=== PATIENT | male | born 1985 | race Caucasian/White ===

== ENCOUNTER 2020-10-08 10:05 | Emergency (ER) | payer SELFPAY ==
--- OUTSIDE RECORDS SUMMARY | 2020-10-08 10:08 | XMS REPORT | Continuity of Care Document ---
:1985 Author Organization [facility] t Address [address] [place] [address] Care Team Providers Name Role Phone FLORES Attending Clinician Unavailable Payers Payer Name Policy Type Policy Number Effective Date Expiration Date S ource Problems This patient has no known problems. Allergies, Adverse Reactions, Alerts Allergy Allergy Status Severity Reaction(s) Onset Inactive Treating Comm ents Source Name Type Date Date Clinician No Known DA Active U [facility] Allergie 12-13 Clear s 00:00: [place] 00 [facility] Medications This patient has no known medications. Procedures This patient has no known procedures. Encounters Start End Encounter Admission Attending Care Care Encounter Source Date/Time Date/Time Type Type Clinicians Facility Department ID 2020-06-07 2020-06-[address] [facility] [id number] Access 13:39:00 13:39:00 [facility] 2020-05-31 2020-05-[address] [facility] [id number] Access 09:00:00 09:00:00 [facility] Results Test Description Test Time Test Comments Results Result [facility] e Comments - XR KNEE 1 OR 2 V 2019-12-14 FAX: Y RT 05:12:00 Valentin Reid MD [phone] [place]: St: PRE Name: [facility] [place] : 1985 Age/S: 34/M [address] [place] [address] Unit #: [id number] Loc: [address] [place] [address] Phys: Valentin Reid MD Acct: [id number] Dis Date: Status: PRE ER PHONE #: [phone] Exam Date: 12/14/2019446 FAX #: [phone] Reason: PAIN WITH TRAUMA EXAMS: CPT CODE: [id number] XR KNEE 1 OR 2 V RT [address]89 EXAM: CR, XR ANKLE 3+ V LT: 12/14/2019, 0439 hours History: Pain with trauma. Fall. Foot/ankle and right knee pain. Comparison: None FINDINGS: AP, lateral and oblique view of the left ankle are submitted. A well-corticated calcific density abutting the inferior tip of the medial malleolus probably sequelae of for trauma. Ankle mortise is intact. There are no acute fracture or dislocation. There is faint radiodensity abutting the dorsal aspect of the distal talus. Mild soft tissue swelling seen. No radiopaque foreign bodies identified. If indicated, follow-up radiograph or MRI can be obtained for complete assessment. Can be obtained for complete assessment. IMPRESSION: 1. A radiodensity along the dorsal aspect of the anterior talus and navicular bone may be sequelae of old trauma or soft tissue calcification. 2. No acute fracture or dislocation seen. 3. Mild soft tissue swelling. SL:[JSYED-H] EXAM: CR, XR KNEE 1 OR 2 V RT: 12/14/2019, 0439 hours History: Pain with trauma. Fall. Foot/ankle and right knee pain. Comparison: None FINDINGS: AP and lateral view of the right knee are submitted. Alignment is satisfactory. There is no acute fracture or dislocation of the right knee. No appreciable joint effusion seen. PAGE 1 Signed Report (CONTINUED) FAX: Valentin Leos MD [phone] [place]: St: PRE Name: SARI SARMIENTO [facility] : 1985 Age/S: 34/M [address] [place] [address] Unit #: [id number] Loc: [address] [address] Phys: Valentin Reid MD Acct: [id number] Dis Date: Status: PRE ER PHONE #: [phone] Exam Date: 12/14/2019 0447 FAX #: [phone] Reason: PAIN WITH TRAUMA EXAMS: CPT CODE: [id number] XR KNEE 1 OR 2 V RT [address] <Continued> Soft tissues are unremarkable.. No radiopaque foreign bodies identified. If indicated, follow-up radiograph or MRI can be obtained for complete assessment. Can be obtained for complete assessment. IMPRESSION: 1. No acute fracture or dislocation of the right knee seen. SL:[JSYED-H] at 0512 Reported and signed by: Rian Ware M.D. CC: Valentin Reid MD Technologist: Diana Valdivia, RT(R) Trnscrd Date/Time/By: 12/14/2019 (05) : By: [email or web address] Orig Print D/T: S: 12/14/2019 (7952) PAGE 2 Signed Report - XR ANKLE 3 + V 2019-12-14 FAX: Y LT 05:12:00 Valentin Reid MD [phone] [place]: St: PRE Name: SARI SARMIENTO [facility] : 1985 Age/S: 34/M [address] [place] [address] Unit #: [id number] Loc: [facility]ERS[address] [place] [address] Phys: Valentin Reid MD Acct: [id number] Dis Date: Status: PRE ER PHONE #: [phone] Exam Date: 12/14/2019446 FAX #: [phone] Reason: PAIN WITH TRAUMA EXAMS: CPT CODE: [id number] XR ANKLE 3 + [place] LT [address] EXAM: CR, XR ANKLE 3+ V LT: 12/14/2019, 0439 hours History: Pain with trauma. Fall. Foot/ankle and right knee pain. Comparison: None FINDINGS: AP, lateral and oblique view of the left ankle are submitted. A well-corticated calcific density abutting the inferior tip of the medial malleolus probably sequelae of for trauma. Ankle mortise is intact. There are no acute fracture or dislocation. There is faint radiodensity abutting the dorsal aspect of the distal talus. Mild soft tissue swelling seen. No radiopaque foreign bodies identified. If indicated, follow-up radiograph or MRI can be obtained for complete assessment. Can be obtained for complete assessment. IMPRESSION: 1. A radiodensity along the dorsal aspect of the anterior talus and navicular bone may be sequelae of old trauma or soft tissue calcification. 2. No acute fracture or dislocation seen. 3. Mild soft tissue swelling. SL:[JSYED-H] EXAM: CR, XR KNEE 1 OR 2 V RT: 12/14/2019, 0439 hours History: Pain with trauma. Fall. Foot/ankle and right knee pain. Comparison: None FINDINGS: AP and lateral view of the right knee are submitted. Alignment is satisfactory. There is no acute fracture or dislocation of the right knee. No appreciable joint effusion seen. PAGE 1 Signed Report (CONTINUED) FAX: Valentin Leos MD [phone] [place]: St: PRE Name: SARI SARMIENTO [facility] : 1985 Age/S: 34/M [address] [place] [address] Bl Unit #: [id number] Loc: [address] [place] [address] Phys: Valentin Reid MD Acct: [id number] Dis Date: Status: PRE ER PHONE #: [phone] Exam Date: 12/14/2019 044 FAX #: [phone] Reason: PAIN WITH TRAUMA EXAMS: CPT CODE: [id number] XR ANKLE 3 + [place] [address] <Continued> Soft tissues are unremarkable.. No radiopaque foreign bodies identified. If indicated, follow-up radiograph or MRI can be obtained for complete assessment. Can be obtained for complete assessment. IMPRESSION: 1. No acute fracture or dislocation of the right knee seen. SL:[JSYED-H] at 0512 Reported and signed by: Rian Ware M.D. CC: Valentin Reid MD Technologist: RT Eliana(R) Trnscrd Date/Time/By: 12/14/2019 (511) : By: [email or web address] Orig Print D/T: S: 12/14/2019 (4345) PAGE 2 Signed Report
[2020-10-08] MEDS ORDERED: LIDOCAINE 1% W/EPI 1:100,000 MDV 20 ML VIAL ONE (10:34)
[2020-10-08] MEDS ORDERED: LIDOCAINE 1% 20 ML MDV ONE (10:37)
--- NOTE | 2020-10-08 10:49 | EDPHYS ---
Physician Documentation [facility] Name: Paul Tarango Age: 35 yrs Sex: Male : 1985 Arrival Date: 10/08/2020 Time: 10:08 Bed 8 Private MD: ED Physician Larry Cowan HPI: 10/08 10:46 This 35 yrs old Male presents to ER via Unassigned with complaints of Blood kb In Urine. 10:46 The patient presents with symptoms include dysuria, green penile discharge. Onset: The kb symptoms/episode began/occurred yesterday. Modifying factors: The symptoms are alleviated by nothing, the symptoms are aggravated by urinating. Associated signs and symptoms: Pertinent positives: dysuria, Pertinent negatives: abdominal pain, constipation, diarrhea, fever, hematuria, nausea, vomiting. Severity of symptoms: At their worst the symptoms were moderate, in the emergency department the symptoms are unchanged. The patient has experienced a previous episode. The patient has not recently seen a physician. Pt reports he started having burning with urination and green penile discharge yesterday. States he has had this once before and waited a week. By that time he had blood in his urine so he wanted to catch it early this time. Reports spouse is only sexual partner. Historical: - Allergies: 10:47 No Known Allergies; jd3 - Home Meds: 10:47 Valacyclovir Oral [Active]; jd3 - PMHx: 10:47 UTI; jd3 - PSHx: 10:47 "re inflate lungs"; jd3 - Immunization history:: Adult Immunizations up to date. - Social history:: Smoking status: Patient reports the use of cigarette tobacco products, denies chronic smoking, but will smoke occasionally. ROS: 10:43 Constitutional: Negative for fever, chills, and weight loss, Respiratory: Negative for kb shortness of breath, cough, wheezing, and pleuritic chest pain, Abdomen/GI: Negative for abdominal pain, nausea, vomiting, diarrhea, and constipation, MS/Extremity: Negative for injury and deformity, Skin: Negative for injury, rash, and discoloration. 10:43 : Positive for burning with urination, penile discharge. Exam: 10:43 Constitutional: This is a well developed, well nourished patient who is awake, alert, kb and in no acute distress. Head/Face: Normocephalic, atraumatic. Cardiovascular: Regular rate and rhythm with a normal S1 and S2. No gallops, murmurs, or rubs. Normal PMI, no JVD. No pulse deficits. Respiratory: Lungs have equal breath sounds bilaterally, clear to auscultation and percussion. No rales, rhonchi or wheezes noted. No increased work of breathing, no retractions or nasal flaring. Abdomen/GI: Soft, non-tender, with normal bowel sounds. No distension or tympany. No guarding or rebound. No evidence of tenderness throughout. Skin: Warm, dry with normal turgor. Normal color with no rashes, no lesions, and no evidence of cellulitis. MS/ Extremity: Pulses equal, no cyanosis. Neurovascular intact. Full, normal range of motion. 10:43 Neuro: Orientation: is normal, to person, place, time \\T\\ situation. Motor: is normal, moves all fours, Gait: is steady. Vital Signs: 10:47 BP 114 / 80; Pulse 82; Resp 16 S; Temp 97.6(TE); Pulse Ox 96% on R/A; Weight 74.84 kg jd3 (R); Height 5 ft. 9 in. (175.26 cm) (R); Pain 0/10; 10:47 Body Mass Index 24.37 (74.84 kg, 175.26 cm) jd3 MDM: 10:12 Patient medically screened. kb 10:46 Data reviewed: vital signs, nurses notes. Data interpreted: Pulse oximetry: on room air kb is 98 %. Interpretation: normal. Counseling: I had a detailed discussion with the patient and/or guardian regarding: the historical points, exam findings, and any diagnostic results supporting the discharge/admit diagnosis, the need for outpatient follow up, a family practitioner, to return to the emergency department if symptoms worsen or persist or if there are any questions or concerns that arise at home. 10/08 11:03 Order name: Urine Dipstick--Ancillary (enter results) eb 10/08 10:12 Order name: Urine Dipstick-Ancillary (obtain specimen); Complete Time: 11:14 kb Administered Medications: 11:14 Drug: Rocephin (cefTRIAXone) 500 mg Route: IM; Site: right deltoid; jd3 11:32 Follow up: Response: No adverse reaction jd3 11:14 Drug: Zithromax 1 grams Route: PO; jd3 11:32 Follow up: Response: No adverse reaction jd3 Disposition: 11:47 Co-signature as Attending Physician, Larry Cowan MD. rn Disposition: 10/08/20 10:48 Discharged to Home. Impression: Unspecified sexually transmitted disease. - Condition is Stable. - Discharge Instructions: Sexually Transmitted Disease, [id number]. - Medication Reconciliation Form, Thank You Letter, Antibiotic Education, Prescription Opioid Use form. - Follow up: Emergency Department; When: As needed; Reason: Worsening of condition. Follow up: Private Physician; When: 2 - 3 days; Reason: Recheck today's complaints, Continuance of care, Re-evaluation by your physician. Signatures: Dispatcher [employer] EDMS Leni Murphy, VETERANS EMPLOYMENT REPRESENTATIVE-C VETERANS EMPLOYMENT REPRESENTATIVE-Ckb Larry Cowan MD MD rn Davies, Jonathon, RN RN jcecile Corrections: (The following items were deleted from the chart) 11:32 10:48 10/08/2020 10:48 Discharged to Home. Impression: Unspecified sexually transmitted jd3 disease. Condition is Stable. Discharge Instructions: Sexually Transmitted Disease, [id number]. Forms are Medication Reconciliation Form, Thank You Letter, Antibiotic Education, Prescription Opioid Use. Follow up: Emergency Department; When: As needed; Reason: Worsening of condition. Follow up: Private Physician; When: 2 - 3 days; Reason: Recheck today's complaints, Continuance of care, Re-evaluation by your physician. kb
--- NOTE | 2020-10-08 10:49 | ER ---
Nurse's Notes [facility] Name: Paul Tarango Age: 35 yrs Sex: Male : 1985 Arrival Date: 10/08/2020 Time: 10:08 Bed 8 Private MD: Diagnosis: Unspecified sexually transmitted disease Presentation: 10/08 10:13 Acuity: CAROLIN 4 jd3 10:46 Chief complaint: Patient states: "maybe a UTI. burning when I pee and having some jd3 discharge.". Coronavirus screen: At this time, the client does not indicate any symptoms associated with coronavirus-19. Ebola Screen: Patient negative for fever greater than or equal to 101.5 degrees Fahrenheit, and additional compatible Ebola Virus Disease symptoms. Initial Sepsis Screen: Does the patient meet any 2 criteria? No. Patient's initial sepsis screen is negative. Does the patient have a suspected source of infection? No. Patient's initial sepsis screen is negative. Risk Assessment: Do you want to hurt yourself or someone else? Patient reports no desire to harm self or others. Onset of symptoms was October 08, 2020. 10:46 Method Of Arrival: Ambulatory jd3 Historical: - Allergies: 10:47 No Known Allergies; jd3 - Home Meds: 10:47 Valacyclovir Oral [Active]; jd3 - PMHx: 10:47 UTI; jd3 - PSHx: 10:47 "re inflate lungs"; jd3 - Immunization history:: Adult Immunizations up to date. - Social history:: Smoking status: Patient reports the use of cigarette tobacco products, denies chronic smoking, but will smoke occasionally. Screenin:08 Abuse screen: Denies threats or abuse. Nutritional screening: No deficits noted. jd3 Tuberculosis screening: No symptoms or risk factors identified. Fall Risk Ambulatory Aid- None/Bed Rest/Nurse Assist (0 pts). Gait- Normal/Bed Rest/Wheelchair (0 pts) Mental Status- Oriented to own ability (0 pts). Total Chapa Fall Scale indicates No Risk (0-24 pts). Assessment: 11:06 General: Appears in no apparent distress. comfortable, Behavior is calm, cooperative, jd3 appropriate for age. Pain: Denies pain. Neuro: Level of Consciousness is awake, alert, obeys commands, Oriented to person, place, time, situation. Cardiovascular: Denies chest pain, Capillary refill < 3 seconds Patient's skin is warm and dry. Respiratory: Airway is patent Respiratory effort is even, unlabored, Respiratory pattern is regular, symmetrical, Denies cough, shortness of breath. GI: No signs and/or symptoms were reported involving the gastrointestinal system. : Urine is clear, Reports burning with urination, discharge, from penis that is white. EENT: No signs and/or symptoms were reported regarding the EENT system. Derm: Skin is intact, Skin is dry, Skin is normal, Skin temperature is warm. Musculoskeletal: Circulation, motion, and sensation intact. Range of motion: intact in all extremities. 11:32 Reassessment: Patient appears in no apparent distress at this time. No changes from j previously documented assessment. Patient and/or family updated on plan of care and expected duration. Pain level reassessed. Patient is alert, oriented x 3, equal unlabored respirations, skin warm/dry/pink. Vital Signs: 10:47 BP 114 / 80; Pulse 82; Resp 16 S; Temp 97.6(TE); Pulse Ox 96% on R/A; Weight 74.84 kg jd3 (R); Height 5 ft. 9 in. (175.26 cm) (R); Pain 0/10; 10:47 Body Mass Index 24.37 (74.84 kg, 175.26 cm) jd3 ED Course: 10:08 Patient arrived in ED. ag5 10:12 Leni Murphy FNP-C [facility]. kb 10:12 Larry Cowan MD is Attending Physician. kb 10:13 Junior Kelly RN is Primary Nurse. jd3 10:13 Triage completed. jd3 10:48 Arm band placed on. jd3 11:08 Patient has correct armband on for positive identification. Bed in low position. Call j light in reach. Side rails up X 1. Pulse ox on. NIBP on. 11:32 No provider procedures requiring assistance completed. Patient did not have IV access jd3 during this emergency room visit. Administered Medications: 11:14 Drug: Rocephin (cefTRIAXone) 500 mg Route: IM; Site: right deltoid; jd3 11:32 Follow up: Response: No adverse reaction jd3 11:14 Drug: Zithromax 1 grams Route: PO; jd3 11:32 Follow up: Response: No adverse reaction jd3 Outcome: 10:48 Discharge ordered by MD. mann 11:32 Discharged to home ambulatory. jd3 11:32 Condition: stable 11:32 Discharge instructions given to patient, Instructed on discharge instructions, follow up and referral plans. Demonstrated understanding of instructions, follow-up care. 11:33 Patient left the ED. jd3 Signatures: Leni Murphy, LEESAC Junior Bailey RN RN jd3 aJel French ag5
[2020-10-08] MEDS ORDERED: AZITHROMYCIN 250 MG TAB ONE (11:10)
[2020-10-08] MEDS ORDERED: CEFTRIAXONE 500 MG/VIAL ONE (11:11)
[2020-10-08 11:38] VITALS: BP 114/80; TEMP 97.6; O2SAT 96
[2020-10-08 14:08] LABS: Urine Blood TRACE (NEG); Urine Glucose NEGATIVE (NEG); Urine Protein NEGATIVE (NEG)
== END 2020-10-08 11:32 | disposition home or self-care (01) ==
LOC: ER 10:05
DX: A64 Unspecified sexually transmitted disease (principal); F17.210 Nicotine dependence, cigarettes, uncomplicated
CPT/HCPCS: 81003; 96372; 99283; J0696